=== PATIENT | female | born 1980 | race Caucasian/White ===

== ENCOUNTER 2017-03-14 10:33 | Emergency (ER) | payer OTHER ==
[~2017-03-14] VITALS: Ht 157.5 cm; Wt 58.1 kg
--- NOTE | 2017-03-14 10:39 | NUR ---
MARLI GORDON at the bedside for MSE.
[2017-03-14 10:56] VITALS: BP 119/55
--- NOTE | 2017-03-14 10:57 | NUR ---
Patient discharged to home in stable conditon. Written and verbal after care instructions given. Patient verbalizes understanding of instructions.
== END 2017-03-14 10:57 | disposition home or self-care (01) ==
LOC: ER 10:33
DX: K11.20 Sialoadenitis, unspecified (principal); Z88.0 Allergy status to penicillin
CPT/HCPCS: 99283; A4663

== ENCOUNTER 2017-03-30 07:15 | Emergency (ER) | payer OTHER ==
[~2017-03-30] VITALS: Ht 157.5 cm; Wt 59.0 kg
[2017-03-30] MEDS ORDERED: IV NORMAL SALINE 250 ML IV ONE (07:51)
[2017-03-30] MEDS ORDERED: IOHEXOL 300MG/ML 100 ML INFUS..BTL ONE (07:51)
--- NOTE | 2017-03-30 08:01 | NUR ---
saline lock placed, lavbs drawn/sent.
[2017-03-30 08:03] LABS: BASOPHILS % (AUTO) 1.3 % (0.0-2.0); EOSINOPHILS # (AUTO) 0.1 K/uL (0.0-0.7); HEMATOCRIT 38.1 % (31.2-41.9); HEMOGLOBIN 13.1 g/dL (10.9-14.3); LYMPHOCYTES # (AUTO) 1.2 K/uL (20.0-40.0); LYMPHOCYTES % (AUTO) 30.9 % (20.5-51.5); MEAN CORPUSCULAR HEMOGLOBIN 30.9 uug (24.7-32.8); MEAN CORPUSCULAR HGB CONC 35 g/dL (32.3-35.6); MEAN CORPUSCULAR VOLUME 89.6 fL (75.5-95.3); MONOCYTES # (AUTO) 0.3 K/uL (2.0-10.0); MONOCYTES % (AUTO) 8.6 % (0.0-11.0); NEUTROPHILS # (AUTO) 2.1 K/uL (1.8-8.9); NEUTROPHILS % (AUTO) 56.2 % (38.5-71.5); PLATELET COUNT (AUTO) 269 K/uL (179-408); RED BLOOD CELL COUNT(AUTO) 4.25 MIL/uL (3.63-4.92); WHITE BLOOD COUNT (AUTO) 3.8 K/uL (3.8-11.8)
[2017-03-30 08:13] LABS: POTASSIUM 3.8 mmol/L (3.5-5.1)
[2017-03-30 08:24] LABS: BILIRUBIN,TOTAL 0.6 mg/dL (0.2-1.0); TOTAL PROTEIN, SERUM 7.3 g/dL (6.4-8.2)
--- NOTE | 2017-03-30 10:14 | NUR ---
mse completed, iv d/c'd intact, aci/copy of ct results given. pt ambulated w/o diff/took all belongiings.
[2017-03-30 10:24] VITALS: BP 118/78
== END 2017-03-30 10:00 | disposition home or self-care (01) ==
LOC: ER 07:15
DX: K02.9 Dental caries, unspecified (principal); Z88.1 Allergy status to other antibiotic agents; Z88.5 Allergy status to narcotic agent
CPT/HCPCS: 36415; 70491; 84703; 85025; A4663; J7050; Q9967

== ENCOUNTER 2017-11-02 07:44 | Emergency (ER) | payer OTHER ==
[~2017-11-02] VITALS: Ht 157.5 cm; Wt 54.4 kg
[2017-11-02 08:12] LABS: BASOPHILS # (AUTO) 0.1 K/uL (0.0-8.0); BASOPHILS % (AUTO) 1.7 % (0.0-2.0); EOSINOPHILS # (AUTO) 0.1 K/uL (0.0-0.7); EOSINOPHILS % (AUTO) 3.4 % (0.0-7.0); HEMATOCRIT 39.9 % (31.2-41.9); HEMOGLOBIN 13.7 g/dL (10.9-14.3); LYMPHOCYTES # (AUTO) 1.3 K/uL (20.0-40.0); LYMPHOCYTES % (AUTO) 42.5 % (20.5-51.5); MEAN CORPUSCULAR HEMOGLOBIN 31.5 uug (24.7-32.8); MEAN CORPUSCULAR HGB CONC 34 g/dL (32.3-35.6); MONOCYTES # (AUTO) 0.3 K/uL (2.0-10.0); MONOCYTES % (AUTO) 11.3 % (0.0-11.0); NEUTROPHILS # (AUTO) 1.2 K/uL (1.8-8.9); NEUTROPHILS % (AUTO) 41.1 % (38.5-71.5); PLATELET COUNT (AUTO) 264 K/uL (179-408); RED BLOOD CELL COUNT(AUTO) 4.34 MIL/uL (3.63-4.92)
[2017-11-02 08:19] LABS: *BILIRUBIN,URIN NEGATIVE (NEGATIVE); *BLOOD, URINE Trace-intact (NEGATIVE); *CLARITY,URINE CLEAR (CLEAR); *COLOR,URINE YELLOW (YELLOW); *KETONES,URINE NEGATIVE (NEGATIVE); *PROTEIN,URINE NEGATIVE (NEGATIVE); *UROBILINOGEN,URINE 0.2 E.U./dl (NORMAL); LEUKOCYTE ESTERASE ,URINE NEGATIVE (NEGATIVE); NITRITE, URINE NEGATIVE (NEGATIVE); UGLUCOSE NEGATIVE (NEGATIVE)
[2017-11-02 08:21] LABS: *URINE HCG, QUAL NEGATIVE (NEGATIVE)
[2017-11-02 08:22] LABS: BACTERIA,URINE FEW /HPF (NONE SEEN); SQUAMOUS EPITHELIAL CELL,UR MODERATE /HPF (NONE SEEN)
--- NOTE | 2017-11-02 08:49 | NUR ---
Patient discharged to home in stable conditon. Written and verbal after care instructions given. Patient verbalizes understanding of instructions.
[2017-11-04 11:06] LABS: *GC NAA Negative (Negative); *TRIC.VAG. NAA Negative (Negative)
== END 2017-11-02 08:52 | disposition home or self-care (01) ==
LOC: ER 07:44
DX: N93.9 Abnormal uterine and vaginal bleeding, unspecified (principal); Z88.1 Allergy status to other antibiotic agents; Z88.8 Allergy status to other drugs, medicaments and biological substances
CPT/HCPCS: 36415; 76856; 81001; 84703; 85025; 87491; 99285; A4663

== ENCOUNTER 2018-04-19 08:22 | Emergency (ER) | payer SELFPAY ==
[~2018-04-19] VITALS: Ht 157.5 cm; Wt 56.7 kg
--- NOTE | 2018-04-19 08:32 | NUR ---
pt is in room #2a. dr hernandes evaluated the pt.
[2018-04-19] MEDS ORDERED: LORAZEPAM 0.5 MG TABLET PO ONE (09:00)
[2018-04-19] MEDS ORDERED: LORAZEPAM 1 MG TABLET ONE (09:02)
[2018-04-19 09:16] LABS: BASOPHILS % (AUTO) 1.2 % (0.0-2.0); EOSINOPHILS # (AUTO) 0.2 K/uL (0.0-0.7); EOSINOPHILS % (AUTO) 3.9 % (0.0-7.0); HEMATOCRIT 41.1 % (31.2-41.9); HEMOGLOBIN 13.9 g/dL (10.9-14.3); LYMPHOCYTES # (AUTO) 1.6 K/uL (20.0-40.0); LYMPHOCYTES % (AUTO) 39.6 % (20.5-51.5); MEAN CORPUSCULAR HEMOGLOBIN 30.6 uug (24.7-32.8); MEAN CORPUSCULAR HGB CONC 34 g/dL (32.3-35.6); MEAN CORPUSCULAR VOLUME 90.2 fL (75.5-95.3); MONOCYTES # (AUTO) 0.4 K/uL (2.0-10.0); MONOCYTES % (AUTO) 9.7 % (0.0-11.0); NEUTROPHILS # (AUTO) 1.8 K/uL (1.8-8.9); NEUTROPHILS % (AUTO) 45.6 % (38.5-71.5); PLATELET COUNT (AUTO) 300 K/uL (179-408); RED BLOOD CELL COUNT(AUTO) 4.55 MIL/uL (3.63-4.92)
[2018-04-19 09:20] LABS: CREATININE 0.9 mg/dL (0.6-1.3); POTASSIUM 3.8 mmol/L (3.5-5.1)
[2018-04-19 09:30] LABS: ETHANOL < 3 MG/DL (0-0)
[2018-04-19 10:10] LABS: *AMPHETAMINE, URINE NEGATIVE (NEGATIVE); *BARBITURATE, URINE NEGATIVE (NEGATIVE); *CANNABINOID, URINE POSITIVE (NEGATIVE); *COCCAINE, URINE NEGATIVE (NEGATIVE); *OPIATE, URINE NEGATIVE (NEGATIVE); *PHENCYCLIDINE SCREEN,URINE NEGATIVE (NEGATIVE)
[2018-04-19] MEDS ORDERED: KETOROLAC TROMETHAMINE 30 MG INJ IM ONE (11:00)
[2018-04-19] MEDS ORDERED: KETOROLAC TROMETHAMINE 30 MG INJ ONE (11:07)
--- NOTE | 2018-04-19 11:58 | NUR ---
PT WAS D/C'D TO HOME. D/C INSTRUCTIONS GIVEN TO THE PT. PT DENIES PAIN. NO SOB. NO N/V.
[2018-04-19 11:59] VITALS: BP 108/62
== END 2018-04-19 12:00 | disposition home or self-care (01) ==
LOC: ER 08:22
DX: M54.6 Pain in thoracic spine (principal); M54.5 Low back pain; R00.2 Palpitations; Z88.1 Allergy status to other antibiotic agents; Z88.8 Allergy status to other drugs, medicaments and biological substances
CPT/HCPCS: 36415; 71045; 80048; 80307; 84484; 84702; 85025; 85379; 93005; 96372; 99284; G0480; J1885; 70030-TC; A4663

== ENCOUNTER 2019-01-28 23:13 | Emergency (ER) | payer SELFPAY ==
[~2019-01-28] VITALS: Ht 157.5 cm; Wt 59.0 kg
--- NOTE | 2019-01-28 23:20 | NUR ---
Patient walked into ER c/o dry cough for 4 weeks. Denies SOB,N/V or CP.
[2019-01-28] MEDS ORDERED: BENZONATATE 100 MG CAPSULE ONE (23:54)
[2019-01-29] MEDS ORDERED: BENZONATATE 100 MG CAPSULE PO ONE
--- NOTE | 2019-01-29 00:16 | NUR ---
Patient discharged to home in stable conditon. Written and verbal after care instructions given. Patient verbalizes understanding of instructions. Walked out of Er with no distress noted.
[2019-01-29 00:17] VITALS: BP 118/90
== END 2019-01-29 00:17 | disposition home or self-care (01) ==
LOC: ER 23:15
DX: J20.9 Acute bronchitis, unspecified (principal); Z88.1 Allergy status to other antibiotic agents; Z88.8 Allergy status to other drugs, medicaments and biological substances
CPT/HCPCS: 71045; A4663

== ENCOUNTER 2019-02-01 13:28 | Emergency (ER) | payer SELFPAY ==
[~2019-02-01] VITALS: Ht 157.5 cm; Wt 54.4 kg
--- NOTE | 2019-02-01 14:11 | NUR ---
Patient ambulated with stable gait. A/Ox4. Patient came for c/o right sided rib discomfort when she coughs. Patient barely finishing ZPAK today for her previous illness. Respiratory even and unlabored, no cough or sob observed upon assessment. Denies any cp. Denies any n/v/d.
[2019-02-01 14:45] VITALS: BP 121/71
--- NOTE | 2019-02-01 14:45 | NUR ---
Patient discharged to home in stable conditon. Written and verbal after care instructions given. Patient verbalizes understanding of instructions. Patient ambulated with stable gait.
== END 2019-02-01 14:46 | disposition home or self-care (01) ==
LOC: ER 13:29
DX: R07.89 Other chest pain (principal); R05 Cough; Z88.1 Allergy status to other antibiotic agents; Z88.8 Allergy status to other drugs, medicaments and biological substances
CPT/HCPCS: 71101; A4663

== ENCOUNTER 2019-03-26 02:34 | Emergency (ER) | payer SELFPAY ==
[~2019-03-26] VITALS: Ht 157.5 cm; Wt 56.7 kg
[2019-03-26 03:18] VITALS: BP 113/70
--- NOTE | 2019-03-26 03:20 | NUR ---
Patient discharged to home in stable conditon. Written and verbal after care instructions given. Patient verbalizes understanding of instructions. AMBULATORY W/ STABLE GAIT ALL BELONGINGS W/ PT
== END 2019-03-26 03:20 | disposition home or self-care (01) ==
LOC: ER 02:37
DX: J06.9 Acute upper respiratory infection, unspecified (principal); F10.10 Alcohol abuse, uncomplicated; Z88.1 Allergy status to other antibiotic agents
CPT/HCPCS: A4663

== ENCOUNTER 2019-04-10 21:09 | Emergency (ER) | payer SELFPAY ==
[~2019-04-10] VITALS: Ht 157.5 cm; Wt 57.6 kg
--- NOTE | 2019-04-10 21:46 | NUR ---
Patient discharged to home in stable conditon. Written and verbal after care instructions given. Patient verbalizes understanding of instructions. Walked out of ER with no distress noted.
== END 2019-04-10 21:47 | disposition home or self-care (01) ==
LOC: ER 21:12
DX: J06.9 Acute upper respiratory infection, unspecified (principal); Z88.1 Allergy status to other antibiotic agents
CPT/HCPCS: 71045; A4663

== ENCOUNTER 2022-04-12 10:38 | Emergency (ER) | payer MEDICAID ==
[~2022-04-12] VITALS: Ht 157.5 cm; Wt 59.0 kg
[2022-04-12] MEDS ORDERED: LORAZEPAM 2 MG/1 ML VIAL ONE (11:26)
[2022-04-12] MEDS ORDERED: KETOROLAC TROMETHAMINE 15 MG INJ ONE (11:26)
[2022-04-12] MEDS ORDERED: KETOROLAC TROMETHAMINE 15 MG INJ IVP ONE (11:30)
[2022-04-12] MEDS ORDERED: LORAZEPAM 2 MG/1 ML VIAL IV ONE (11:30)
[2022-04-12 11:35] LABS: HEMATOCRIT 41.4 % (31.2-41.9); MEAN CORPUSCULAR HEMOGLOBIN 30.8 uug (24.7-32.8); MEAN CORPUSCULAR VOLUME 90.8 fL (75.5-95.3); PLATELET COUNT (AUTO) 288 K/uL (179-408)
[2022-04-12 11:47] LABS: *BILIRUBIN,URIN NEGATIVE (NEGATIVE); *BLOOD, URINE NEGATIVE (NEGATIVE); *CLARITY,URINE CLEAR (CLEAR); *COLOR,URINE YELLOW (YELLOW); *KETONES,URINE NEGATIVE (NEGATIVE); *UROBILINOGEN,URINE 0.2 E.U./dl (NORMAL); LEUKOCYTE ESTERASE ,URINE NEGATIVE (NEGATIVE); NITRITE, URINE NEGATIVE (NEGATIVE); PH,URINE 6.5 (5.0-8.0); UGLUCOSE NEGATIVE (NEGATIVE)
[2022-04-12 11:54] LABS: *URINE HCG, QUAL NEGATIVE (NEGATIVE)
[2022-04-12] MEDS ORDERED: IBUPROFEN 600 MG TABLET PO ONE (12:00)
[2022-04-12] MEDS ORDERED: LORAZEPAM 0.5 MG TABLET PO ONE (12:00)
--- NOTE | 2022-04-12 12:06 | NUR ---
Initially, pt did not want to get an IV, but wanted oral meds; Dr. de anda. After reconsidering, pt opted for IV medication, administered 15mg Toradol in place of 600 mg Motrin and Ativan 0.5 mg IV instead of PO. authorized either route/med.
[2022-04-12 12:20] LABS: BILIRUBIN,TOTAL 0.6 mg/dL (0.2-1.0); CREATININE 0.7 mg/dL (0.6-1.3); POTASSIUM 3.9 mmol/L (3.5-5.1); TOTAL PROTEIN, SERUM 7.5 g/dL (6.4-8.2)
[2022-04-12 13:20] LABS: THYROID STIMULATING HORMONE 2.019 mIU/mL (0.358-3.740)
--- NOTE | 2022-04-12 15:42 | NUR ---
Removed IV intact, site benign, bandaged.
--- NOTE | 2022-04-12 15:44 | NUR ---
Gave pt d/c instructions, pt verbalized understanding. No signing page printed out.
== END 2022-04-12 15:52 | disposition home or self-care (01) ==
LOC: ER 10:38
DX: N64.4 Mastodynia (principal); N63.10 Unspecified lump in the right breast, unspecified quadrant; Z88.0 Allergy status to penicillin; Z88.8 Allergy status to other drugs, medicaments and biological substances
CPT/HCPCS: 99284; 96374; 96375; 80053; 81003; 84703; 84443; 85025; 36415; 76642; J1885; J2060; A4663

== ENCOUNTER 2022-04-22 20:24 | Emergency (ER) | payer MEDICAID, OTHER ==
[~2022-04-22] VITALS: Ht 160 cm; Wt 56.7 kg
--- NOTE | 2022-04-22 20:52 | NUR ---
First contact. Pt c/o lump to right breast. Pt first noticed lump in breast on February and is concerned now that lump has grown from "the size of a grape to the size of a date (fruit) in the period of 2 months." per patient. Pt also states she has pain associated to the area that extends to her right axilla area that she rates as a 6/10.
--- NOTE | 2022-04-22 22:00 | NUR ---
Pt eloped before signing discharge paperwork. ER provider made me aware that patient walked out of ER.
== END 2022-04-22 22:00 | disposition left against medical advice (07) ==
LOC: ER 20:24
DX: N63.11 Unspecified lump in the right breast, upper outer quadrant (principal)
CPT/HCPCS: A4663

== ENCOUNTER 2022-05-14 13:33 | Emergency (ER) | payer MEDICAID ==
[~2022-05-14] VITALS: Ht 160 cm; Wt 56.7 kg
--- NOTE | 2022-05-14 13:59 | NUR ---
[email or web address], medical screening exam in progress
[2022-05-14] MEDS ORDERED: ACETAMINOPHEN 325 MG TABLET ONE (14:24)
[2022-05-14] MEDS ORDERED: ACETAMINOPHEN 325 MG TABLET PO ONE (14:30)
[2022-05-14 14:37] LABS: HEMATOCRIT 37.2 % (31.2-41.9); MEAN CORPUSCULAR HEMOGLOBIN 30.9 uug (24.7-32.8); MEAN CORPUSCULAR VOLUME 91.1 fL (75.5-95.3); PLATELET COUNT (AUTO) 292 K/uL (179-408)
[2022-05-14 14:45] LABS: CREATININE 0.7 mg/dL (0.6-1.3)
--- NOTE | 2022-05-14 15:35 | NUR ---
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
--- NOTE | 2022-05-14 16:37 | NUR ---
Patient discharged to home by Dr Vargas in stable condition with brisk steady gait. Written and verbal after care instructions given. Patient verbalized understanding and compliance of instructions. Stressed follow up with primary doctor and breast doctor-surgeon or return to ER for worsening s/s.
[2022-05-14 16:42] LABS: *URINE HCG, QUAL NEG (NEGATIVE)
[2022-05-14 18:55] LABS: NEUTROPHILS % (MANUAL) 0 % (42-75)
== END 2022-05-14 16:37 | disposition home or self-care (01) ==
LOC: ER 13:45
DX: N63.10 Unspecified lump in the right breast, unspecified quadrant (principal); N64.4 Mastodynia; R07.89 Other chest pain; Z87.891 Personal history of nicotine dependence; Z88.1 Allergy status to other antibiotic agents; Z88.8 Allergy status to other drugs, medicaments and biological substances
CPT/HCPCS: 36415; 70030-TC; 71045; 76642; 84703; 85025; 86480; 86592; 87806; 93005; A4663

== ENCOUNTER 2022-08-20 21:02 | Emergency (ER) | payer MEDICAID ==
[~2022-08-20 21:02] MED LIST: NITR-84 PO; PHEN-894 PO
[2022-08-20 22:19] LABS: *BILIRUBIN,URIN NEGATIVE (NEGATIVE); *BLOOD, URINE NEGATIVE (NEGATIVE); *CLARITY,URINE CLEAR (CLEAR); *COLOR,URINE YELLOW (YELLOW); *KETONES,URINE NEGATIVE (NEGATIVE); *UROBILINOGEN,URINE 0.2 E.U./dl (NORMAL); LEUKOCYTE ESTERASE ,URINE TRACE (NEGATIVE); NITRITE, URINE POSITIVE (NEGATIVE); UGLUCOSE NEGATIVE (NEGATIVE)
--- NOTE | 2022-08-20 22:30 | NUR ---
Pt states didn't want to be registered, only wanted to talk to the doctor.
[2022-08-20 22:47] LABS: BACTERIA,URINE MODERATE /HPF (NONE SEEN); SQUAMOUS EPITHELIAL CELL,UR FEW /HPF (NONE SEEN)
[2022-08-20] MEDS ORDERED: CEPH500T PO (23:31)
== END 2022-08-21 01:48 | disposition left against medical advice (07) ==
LOC: ER 22:04
DX: N39.0 Urinary tract infection, site not specified (principal); Z76.0 Encounter for issue of repeat prescription; Z88.0 Allergy status to penicillin; Z88.1 Allergy status to other antibiotic agents; Z88.8 Allergy status to other drugs, medicaments and biological substances; Z79.899 Other long term (current) drug therapy

== ENCOUNTER 2024-03-04 16:54 | Emergency (ER) | payer MEDICAID ==
[~2024-03-04] VITALS: Ht 157.5 cm; Wt 59.0 kg
[~2024-03-04 16:54] MED LIST changes: +CEPH500T PO
[2024-03-04] MEDS ORDERED: AZIT250T13 PO (17:28)
[2024-03-04] MEDS ORDERED: METR500T PO (17:28)
[2024-03-04 17:44] VITALS: BP 123/69
== END 2024-03-04 17:45 | disposition home or self-care (01) ==
LOC: ER 16:54
DX: H66.92 Otitis media, unspecified, left ear (principal); N76.0 Acute vaginitis; B96.89 Other specified bacterial agents as the cause of diseases classified elsewhere; F17.200 Nicotine dependence, unspecified, uncomplicated; Z88.0 Allergy status to penicillin
CPT/HCPCS: A4606; A4663